=== PATIENT | female | born 1980 | race Caucasian/White ===

== ENCOUNTER 2021-10-24 17:54 | Emergency (ER) | payer MEDICAID, SELFPAY ==
[2021-10-24 18:01] VITALS: BP 110/67; PULSE 95; RESP 16; TEMP 37; O2SAT 95
--- NOTE | 2021-10-24 18:11 | W.ED.GENADLT ---
HPI - General Adult General: Chief complaint: COVID symptoms Stated complaint: abd pain, back pain Time Seen by Provider: 10/24/21 18:10 History of Present Illness: Patient is a 41-year-old female w with no significant past medical history presents to the emergency room for evaluation of diffuse abdominal pain bilateral flank pain, dysuria in the setting of generalized body aches and cough and shortness of breath. Patient tells me that all the symptoms started 2 days ago. Patient reports that has abdominal pain pain has progressed from intermittent colicky pain to constant abdominal pain. Patient reports multiple episodes of vomiting in the last 2 days. Patient denies any diarrhea melena hematochezia. Patient denies any new vaginal discharge or vaginal bleeding. Patient denies any sick contacts around her. Onset:2 days ago Duration:2 days Location:home Severity:moderate Associated symptoms: Reports nausea and vomiting; Deny chest pain, dyspnea, rash or palpitations Review of Systems Const: Denies: fever(s) or chills Eyes: Denies: change in vision ENMT: Denies: mouth pain Card: Denies: chest pain or palpitations Resp: Denies: dyspnea or non-productive cough GI: Reports: abdominal pain, nausea, vomiting and other; Denies: diarrhea : Reports: flank pain (+b/l dysuria) and dysuria Musc: Denies: extremity pain Skin/Breast: Denies: rash or new lesions Neuro: Denies: weakness in extremities Psych: Reports: other (Normal mood) Brandon/Lymph: Denies: easy bruising PFSH ED PFSH: Medical History No pertinent past medical history Denies diabetes, asthma, hypertension, seizures, DVT/PE PCP: Caprice Oviedo Surgical History S/P eye surgery Bilateral surgery for strabismus in 1997 Family History Grandfather Diabetes maternal Hyperlipidemia maternal Mother Hyperlipidemia Hypertension Heart disease Grandmother Hyperlipidemia maternal Heart disease maternal Breast cancer maternal, age at diagnosis unknown Ovarian cancer maternal, age at diagnosis unknown Family/Other Thyroid condition maternal aunt Denies family history of Colon cancer Uterine cancer Stroke Physical Exam Const: COMMON NORMALS: alert HENMT: COMMON NORMALS: atraumatic HEAD & SCALP: atraumatic MOUTH: moist mucous membranes abnormal Eye: COMMON NORMALS: EOMs intact bilaterally and conjunctivae normal CONJUNCTIVA: Yes conjunctivae normal Neck/C-Spine: COMMON NORMALS: full ROM and supple Resp: COMMON NORMALS: normal respiratory effort and clear to auscultation bilaterally AUSCULTATION: clear to auscultation bilaterally Cardio: COMMON NORMALS: regular rate RATE: regular rate GI: COMMON NORMALS: Soft to palpation PALPATION: Yes Soft to palpation OTHER: +Mild diffuse abd TTP. NO guarding rebound, guarding, rigidity. +L CVA tenderness to percussion. Neg Correa/Neg McBurney's point tenderness, no suprabupic tenderness to palpation. +b/l flank tenderness to palpation Extremity: COMMON NORMALS: full ROM Neuro: SENSORIUM/ORIENTATION: Yes alert MOTOR EXAM: No Abnormal motor strength present and Other motor observations present (no focal motor deficits) Psych: COMMON NORMALS: speech normal SPEECH: Yes normal speech MOOD & AFFECT: Yes euthymic mood Course Vital Signs: Vital signs: Vital Signs Temperature 98.6 F 10/24/21 18:01 Pulse Rate 72 10/24/21 21:30 Respiratory Rate 16 10/24/21 18:01 Blood Pressure 99/61 10/24/21 21:30 Pulse Oximetry 97 10/24/21 21:30 Oxygen Delivery Me thod 10/24/21 21:30 [facility] - General Adult Medical Decision Making Patient is a 41-year-old female w with no significant past medical history presents to the emergency room for evaluation of diffuse abdominal pain bilateral flank pain, dysuria in the setting of generalized body aches and cough and shortness of breath x 2 days. On physical exam, patient has mild diffuse abdominal tenderness to palpation with right CVA tenderness to palpation. No guarding or rebound tenderness. Patient exhibit COVID symptoms we will swab for COVID today. Lab work-up showed wbc of 2.8. UA is consistent with possible UTI. 2+ blood in the urine CT did not show any focal intra-abdominal pathology including stones. Patient received GI cocktail reports feeling symptomatically improved. Patient has been able to tolerate p.o. in the emergency room. I will give patient dose of cefdinir for possible UTI versus early pyelonephritis. Patient will call us to follow-up on the COVID result tomorrow. Rx tylenol PRN abd pain, maalox/pepcid PRN dyspepsia, and zofran PRN nausea/vomiting, cefdinir for UTI Disposition: Discharge. Patient counseled regarding diagnostic impression, treatment plan. Patient given ED strict return precautions to return for continuation, worsening, or development of new symptoms. Instructed to f/u w/ PCP regarding symptoms today. Patient verbalized understanding. Lab Data : 10/24/21 19:50 10/24/21 19:50 Radiology Impressions Abdomen/Pelvis CT 10/24/21 18:33 IMPRESSION: Negative for acute abdominopelvic pathology. Laboratory Results WBC 2.8 10^3/uL (4.0-10.0) L 10/24/21 19:50 RBC 4.58 10^6/uL (4.1-5.3) 10/24/21 19:50 Hgb 14.7 g/dL (11.5-15.3) 10/24/21 19:50 Hct 43.4 % (37.0-47.0) 10/24/21 19:50 MCV 94.8 fl (81-99) 10/24/21 19:50 MCH 32.1 pg (28.0-34.0) 10/24/21 19:50 MCHC 33.9 g/dL (30.0-36.0) 10/24/21 19:50 RDW 12.6 % (12.1-15.1) 10/24/21 19:50 Plt Count 120 10^3/cmm (130-400) L 10/24/21 19:50 MPV 11.0 fL (7.4-10.4) H 10/24/21 19:50 Neut % (Auto) 55.0 % 10/24/21 19:50 Lymph % (Auto) 33.5 % 10/24/21 19:50 [place] % (Auto) 10.4 % 10/24/21 19:50 Eos % (Auto) 0.4 % 10/24/21 19:50 Baso % (Auto) 0.7 % 10/24/21 19:50 Neut # (Auto) 1.53 10^3/uL (1.8-7.7) L 10/24/21 19:50 Lymph # (Auto) 0.9 10^3/uL (0.8-4.8) 10/24/21 19:50 [place] # (Auto) 0.3 10^3/uL (0.2-0.9) 10/24/21 19:50 Eos # (Auto) 0.0 10^3/uL (0.0-0.8) 10/24/21 19:50 Baso # (Auto) 0.0 10^3/uL (0.0-0.1) 10/24/21 19:50 Nucleated RBC % (auto) 0 % 10/24/21 19:50 Nucleated RBCs # 0.0 /100WBC 10/24/21 19:50 Sodium 131 mmol/L (136-145) L 10/24/21 19:50 Potassium 4.3 mmol/L (3.5-5.1) 10/24/21 19:50 Chloride 98 mmol/L (98-107) 10/24/21 19:50 Carbon Dioxide 22 mmol/L (22-29) 10/24/21 19:50 Anion Gap 15.3 (5-19) 10/24/21 19:50 BUN 11 mg/dL (6-20) 10/24/21 19:50 Creatinine 0.9 mg/dL (0.5-0.9) 10/24/21 19:50 GFR Calculation 69.3 mL/min (90-130) L 10/24/21 19:50 Glucose 85 mg/dL (65-115) 10/24/21 19:50 Calculated Osmolality 271 mOsm/kg (285-295) L 10/24/21 19:50 Calcium 8.8 mg/dL (8.5-10.5) 10/24/21 19:50 Total Bilirubin 0.2 mg/dL (0.15-1.2) 10/24/21 19:50 AST 21 U/L (0-32) 10/24/21 19:50 ALT 17 U/L (0-33) 10/24/21 19:50 Alkaline Phosphatase 54 U/L (35-105) 10/24/21 19:50 Total Protein 7.3 g/dL (6.6-8.7) 10/24/21 19:50 Albumin 4.1 g/dL (3.5-5.2) 10/24/21 19:50 Globulin 3.2 g/dL (1.3-4.6) 10/24/21 19:50 Lipase 24 U/L (13-60) 10/24/21 19:50 Urine Color Yellow (Yellow) 10/24/21 19:36 Urine Appearance Clear (CLEAR) 10/24/21 19:36 Urine pH 6 (5-7) 10/24/21 19:36 Ur Specific [place] 1.010 (1.005-1.030) 10/24/21 19:36 Urine Protein Neg (Negative) 10/24/21 19:36 Urine Glucose (UA) Norm (Normal) 10/24/21 19:36 Urine Ketones Negative (Negative) 10/24/21 19:36 Urine Blood 2+ (Negative) H 10/24/21 19:36 Urine Nitrate Negative (Negative) 10/24/21 19:36 Urine Bilirubin Neg (Negative) 10/24/21 19:36 Urine Urobilinogen Norm mg/dL (Negative) 10/24/21 19:36 Ur Leukocyte Esterase 1+ (Negative) H 10/24/21 19:36 Urine RBC 5-10 /hpf (0-2) H 10/24/21 19:36 Urine WBC 40-55 /hpf (0-5) H 10/24/21 19:36 Ur Squamous Epith Cells 5-10 /hpf (0-5) H 10/24/21 19:36 Amorphous Sediment Not Reportable 10/24/21 19:36 Urine Bacteria 2+ /hpf (NONE) H 10/24/21 19:36 Imaging Data Other Imaging: Radiologist's impression: [place] [id number] CT Scan Report Signed Patient: Misa De Dios Unit #: [id number] : 1980 Age/Sex: 41 / F ADM Date: 10/24/21 Loc: ER Room/Bed: Attending Dr: Ordering Provider/Ordering MD: Ru Dumont MD Date of Service: 10/24/21 Procedure(s): CT abdomen pelvis w con* [id number] Accession Number(s): [id number] Report Number: [id number] PROCEDURE INFORMATION: Exam: CT Abdomen And Pelvis With Contrast Exam date and time: 10/24/2021 7:00 PM Age: 41 years old Clinical indication: Abdominal pain; Rebound pain; Upper; Additional info: Flank and diffuse abd pain TECHNIQUE: Imaging protocol: Computed tomography of the abdomen and pelvis with contrast. Radiation optimization: All CT scans at this facility use at least one of these dose optimization techniques: automated exposure control; mA and/or kV adjustment per patient size (includes targeted exams where dose is matched to clinical indication); or iterative reconstruction. Contrast material: OMNIPAQUE 350; Contrast volume: 80 ml; Contrast route: INTRAVENOUS (IV);? COMPARISON: No relevant prior studies available. RADIATION DOSE METRICS: Total DLP (mGy-cm): 441.25 FINDINGS: Liver: Normal. No mass. Gallbladder and bile ducts: Normal. No calcified stones. No ductal dilation. Pancreas: Normal. No ductal dilation. Spleen: Normal. No splenomegaly. Adrenal glands: Normal. No mass. Kidneys and ureters: Upper pole cortical atrophy of the right kidney. Multiple nonobstructing right kidney stones. Negative for hydroureteronephrosis. Negative for perinephric inflammation. Stomach and bowel: Unremarkable. No obstruction. No mucosal thickening. Appendix: No evidence of appendicitis. Intraperitoneal space: Unremarkable. No free air. No significant fluid collection. Vasculature: Unremarkable. No abdominal aortic aneurysm. Lymph nodes: Unremarkable. No enlarged lymph nodes. Urinary bladder: Unremarkable as visualized. Reproductive: Unremarkable as visualized. Bones/joints: Unremarkable. No acute fracture. Soft tissues: Unremarkable. CT/CT abdomen pelvis w con* [id number] IMPRESSION: Negative for acute abdominopelvic pathology. ? Dictated By: Ernesto Anderson Signed By: Ernesto Anderson Signed Date/Time: 10/24/211937 DD/ 99 Discharge Plan Discharge Patient Disposition: Home Clinical Impression: Abdominal pain, Body aches, Cough Condition: Stable Prescriptions: New acetaminophen 500 mg tablet 500 mg PO Q6H PRN (Reason: pain) 5 Days Qty: 20 0RF Pepcid 20 mg tablet 20 mg PO BID PRN (Reason: abdominal pain) 10 Days Qty: 20 0RF ondansetron 4 mg tablet,disintegrating 4 mg PO TID PRN (Reason: nausea and vomiting) 4 Days Qty: 12 0RF Maalox Advanced 1,000-60 mg tablet,chewable 1 tab PO TID PRN (Reason: abdominal pain) 7 Days Qty: 21 0RF cefdinir 300 mg capsule 300 mg PO BID 10 Days Qty: 20 0RF No Action ascorbate calcium (vitamin C) 500 mg tablet 500 mg PO DAILY Thomas-Mag 200 mg calcium- 100 mg tablet,chewable PO liquid gold PO levomefolate calcium [L-Methylfolate] 15 mg tablet 15 mg PO DAILY alphalpha PO Discharge Orders: Discharge ED (Routine); Ordered 10/24/21 Ordered By: Ru Dumont Discharge Diet: Advance as tolerated Discharge Activity: Increase activity as tolerated Patient Instructions: Dysuria (ED), Abdominal Pain (ED) Activity Restrictions/Additional Instructions: Please come back if you have any worsening abdominal pain, fever or chills, nausea or vomiting, diarrhea, blood in the stool, inability hold down liquid or solids, or any new concerning complaints. Come back to the emergency room if your symptoms worsen, have any shortness of breath, fever/chills, dehydration, inability tolerate food or drinks, any difficulty breathing, or any new or concerning complaints. Coding Level of Care Code ED Inspector Aide for Chg Fwd Exam Comprehensive
--- NOTE | 2021-10-24 18:33 | CTR_ITS ---
PROCEDURE INFORMATION: Exam: CT Abdomen And Pelvis With Contrast Exam date and time: 10/24/2021 7:00 PM Age: 41 years old Clinical indication: Abdominal pain; Rebound pain; Upper; Additional info: Flank and diffuse abd pain TECHNIQUE: Imaging protocol: Computed tomography of the abdomen and pelvis with contrast. Radiation optimization: All CT scans at this facility use at least one of these dose optimization techniques: automated exposure control; mA and/or kV adjustment per patient size (includes targeted exams where dose is matched to clinical indication); or iterative reconstruction. Contrast material: OMNIPAQUE 350; Contrast volume: 80 ml; Contrast route: INTRAVENOUS (IV); COMPARISON: No relevant prior studies available. RADIATION DOSE METRICS: Total DLP (mGy-cm): 441.25 FINDINGS: Liver: Normal. No mass. Gallbladder and bile ducts: Normal. No calcified stones. No ductal dilation. Pancreas: Normal. No ductal dilation. Spleen: Normal. No splenomegaly. Adrenal glands: Normal. No mass. Kidneys and ureters: Upper pole cortical atrophy of the right kidney. Multiple nonobstructing right kidney stones. Negative for hydroureteronephrosis. Negative for perinephric inflammation. Stomach and bowel: Unremarkable. No obstruction. No mucosal thickening. Appendix: No evidence of appendicitis. Intraperitoneal space: Unremarkable. No free air. No significant fluid collection. Vasculature: Unremarkable. No abdominal aortic aneurysm. Lymph nodes: Unremarkable. No enlarged lymph nodes. Urinary bladder: Unremarkable as visualized. Reproductive: Unremarkable as visualized. Bones/joints: Unremarkable. No acute fracture. Soft tissues: Unremarkable. CT/CT abdomen pelvis w con* [id number] IMPRESSION: Negative for acute abdominopelvic pathology.
[2021-10-24] MEDS: iohexol 350 mg/mL 100 mL Btl IV (19:02)
[2021-10-24] MEDS: acetaminophen 500 mg Tablet 1000 MG PO (19:48)
[2021-10-24] MEDS: sodium chloride 0.9% 1,000 ML 999 ML IV (19:52)
[2021-10-24] MEDS: morphine 4 mg/mL SDV 1 mL 2 MG IVP (19:55)
[2021-10-24 20:00] VITALS: BP 107/70; PULSE 86; O2SAT 96; O2SAT 97
[2021-10-24 20:09] LABS: Basophils % 0.7 %; Eosinophils % 0.4 %; Hematocrit 43.4 % (37.0-47.0); Hemoglobin 14.7 g/dL (11.5-15.3); Lymphocytes # 0.9 10^3/uL (0.8-4.8); Lymphocytes % 33.5 %; Mean Corpuscular HGB Conc 33.9 g/dL (30.0-36.0); Mean Corpuscular Hemoglobin 32.1 pg (28.0-34.0); Mean Corpuscular Volume 94.8 fl (81-99); Monocytes # 0.3 10^3/uL (0.2-0.9); Monocytes % 10.4 %; Neutrophils # 1.53 10^3/uL (1.8-7.7); Nucleated Red Blood Cells % 0 %; Platelet Count 120 10^3/cmm (130-400); Red Blood Count 4.58 10^6/uL (4.1-5.3); Red Cell Distribution Width 12.6 % (12.1-15.1); White Blood Count 2.8 10^3/uL (4.0-10.0)
[2021-10-24 20:27] LABS: Add Urine Microscopic? YES; Bilirubin Urine Neg (Negative); Blood Urine 2+ (Negative); Glucose Urine UA Norm (Normal); Ketones Urine Negative (Negative); Leukocyte Esterase Urine 1+ (Negative); Nitrate Urine Negative (Negative); Protein Urine Neg (Negative); Urine Appearance Clear (CLEAR); Urine Color Yellow (Yellow); Urobilinogen Urine Norm (Negative); pH Urine 6 (5-7)
[2021-10-24 20:29] LABS: Add Urine Culture? Yes; Bacteria Urine 2+ /hpf; WBC Urine 40-55 /hpf (0-5)
[2021-10-24 20:30] VITALS: BP 111/69; PULSE 79; O2SAT 96
[2021-10-24 20:30] LABS: Alanine Aminotransferase 17 U/L (0-33); Albumin Level 4.1 g/dL (3.5-5.2); Alkaline Phosphatase 54 U/L (35-105); Blood Urea Nitrogen 11 mg/dL (6-20); Calcium 8.8 mg/dL (8.5-10.5); Carbon Dioxide 22 mmol/L (22-29); Chloride 98 mmol/L (98-107); Globulin 3.2 g/dL (1.3-4.6); Glomerular Filtration Rate 69.3 mL/min (90-130); Glucose 85 mg/dL (65-115); Lipase 24 U/L (13-60); Osmolality Calculated 271 mOsm/kg (285-295); Sodium 131 mmol/L (136-145); Total Bilirubin 0.2 mg/dL (0.15-1.2); Total Protein 7.3 g/dL (6.6-8.7)
[2021-10-24 20:37] LABS: Anion Gap 15.3 (5-19); Aspartate Amino Transferase 21 U/L (0-32); Potassium 4.3 mmol/L (3.5-5.1)
[2021-10-24 21:00] VITALS: BP 133/65; PULSE 73; O2SAT 96
[2021-10-24] MEDS: lidocaine 2% viscous 15 ML, aluminum-mag hydrox-simethicon 30 ML, sucralfate oral liq 1 GM PO (21:00)
[2021-10-24 21:30] VITALS: BP 99/61; PULSE 72; O2SAT 97
[2021-10-24 22:03] LABS: Adenovirus Not Detected (NOT DETECT); Chlamydia Pneumoniae Not Detected (NOT DETECT); Coronavirus 229E,HKU1,NL63,OC4 Not Detected (NOT DETECT); Human Metapneumovirus Not Detected (NOT DETECT); Human Rhinovirus/Enterovirus Not Detected (NOT DETECT); Influenza A Not Detected (NOT DETECT); Influenza A H1 Not Detected (NOT DETECT); Influenza A H1-2009 Not Detected (NOT DETECT); Influenza A H3 Not Detected (NOT DETECT); Influenza B Not Detected (NOT DETECT); Mycoplasma Pneumoniae Not Detected (NOT DETECT); Parainfluenza Virus Type 1 Not Detected (NOT DETECT); Parainfluenza Virus Type 2 Not Detected (NOT DETECT); Parainfluenza Virus Type 3 Not Detected (NOT DETECT); Parainfluenza Virus Type 4 Not Detected (NOT DETECT); Respiratory Syncytial Virus A Not Detected (NOT DETECT); Respiratory Syncytial Virus B Not Detected (NOT DETECT); SARS-COV-2 Detected (NOT DETECT)
[2021-10-24] MEDS: cefdinir 300 MG CAPSULE PO (22:09)
[2021-10-24 22:35] VITALS: BP 113/72; PULSE 64; RESP 18; O2SAT 97
== END 2021-10-24 22:33 | disposition home or self-care (01) ==
PROVIDERS: Emergency Provider Emergency Medicine
DX: U07.1 COVID-19 (principal)
CPT/HCPCS: 74177; 80053; 81001; 83690; 85025; 87086; 87635; 96361; 96374; 99285; J2270; J7030; Q9967

== ENCOUNTER 2022-01-01 02:09 | Emergency (ER) | payer MEDICAID, SELFPAY ==
[2022-01-01 02:12] VITALS: BP 128/77; PULSE 85; RESP 18; TEMP 36.6; O2SAT 99; BMI 25.0
--- NOTE | 2022-01-01 02:13 | ECG_ITS ---
[facility] Test Date: 2022-01-01 Pat Name: Misa De Dios Department: Room: Gender: Female Quality Review Specialist: : 1980 Requested By: Jorge Luis Amato Order Number: [id number] Trent MD: Lisandra Briscoe M.D. Measurements Intervals [place] Rate: 78 P: 77 TN: 152 QRS: 75 QRSD: 88 T: 62 QT: 379 QTc: 432 Interpretive Statements SINUS RHYTHM No previous ECG available for comparison Electronically Signed On 01-01-2022 8:48:26 SPACE CONTROLLER by Lisandra Briscoe M.D. [id number] f
--- NOTE | 2022-01-01 02:13 | XRR_ITS ---
PROCEDURE INFORMATION: Exam: XR Chest Exam date and time: 01/01/2022 3:17 AM Age: 41 years old Clinical indication: Shortness of breath; Chest pressure; Patient HX: C/O chest pain with SOB; Additional info: Cp TECHNIQUE: Imaging protocol: Radiologic exam of the chest. Views: 1 view. COMPARISON: CT abdomen pelvis w con* [id number] 10/24/2021 7:00 PM FINDINGS: Lungs: Normal lung volumes. No interstitial or airspace opacities. Pleural spaces: No pleural effusion. No pneumothorax. Heart/Mediastinum: Normal heart size. Normal mediastinal contour. Midline trachea. Bones/joints: No acute abnormalities. Bilateral nipple metallic studs are seen. Soft tissues: Multiple external densities are seen overlying the chest, limiting assessment. XR/XR chest 1V portable [id number] IMPRESSION: No chest radiographic evidence of acute cardiopulmonary disease.
--- NOTE | 2022-01-01 02:15 | W.ED.CHESTPA ---
HPI - Chest Pain General: Chief Complaint: Chest Pain Stated Complaint: chest pain, SOB Time Seen by Provider: 01/01/22 02:09 Source: patient and EMS Mode of arrival: EMS Limitations: no limitations History of Present Illness: 41-year-old female states that roughly 2 hours ago she started having a sharp pain in her chest. She states that has been constant and very sharp at its worst was an 8 with some dyspnea states that she called EMS and her pain did improve to a 2 and by time she arrived here was a 0 she did not receive any meds in route states she is currently pain-free she feels at her baseline she has no medical issues does not smoke denies any cough or fever. Associated symptoms: Reports dyspnea; Deny abdominal pain, fever(s), nausea or vomiting Review of Systems Const: Denies: fever(s), chills, body aches or change in appetite Eyes: Denies: blurry vision or eye discomfort ENMT: Denies: throat pain or dental pain Card: Reports: chest pain Resp: Reports: dyspnea GI: Denies: abdominal pain, nausea, vomiting or diarrhea : Denies: dysuria Musc: Denies: neck pain or back pain Skin/Breast: Denies: rash Neuro: Denies: headache(s) Psych: Denies: depression Brandon/Lymph: Denies: easy bruising All/Imm: Denies: urticaria PFSH ED PFSH: Medical History No pertinent past medical history Denies diabetes, asthma, hypertension, seizures, DVT/PE PCP: Caprice Oviedo Surgical History S/P eye surgery Bilateral surgery for strabismus in 1997 Family History Grandfather Diabetes maternal Hyperlipidemia maternal Mother Hyperlipidemia Hypertension Heart disease Grandmother Hyperlipidemia maternal Heart disease maternal Breast cancer maternal, age at diagnosis unknown Ovarian cancer maternal, age at diagnosis unknown Family/Other Thyroid condition maternal aunt Denies family history of Colon cancer Uterine cancer Stroke Physical Exam Const: COMMON NORMALS: no acute distress, patient oriented x3 and healthy appearing HENMT: COMMON NORMALS: normocephalic and atraumatic HEAD & SCALP: normocephalic and atraumatic Eye: COMMON NORMALS: Equal, round and reactive pupils present and EOMs intact bilaterally PUPIL: Yes Equal, round and reactive pupils present Neck/C-Spine: COMMON NORMALS: full ROM and supple Chest: COMMONS NORMALS: normal inspection of the chest and normal palpation of entire chest wall Resp: COMMON NORMALS: normal respiratory effort, No retractions, No use of accessory muscles and clear to auscultation bilaterally AUSCULTATION: clear to auscultation bilaterally Cardio: COMMON NORMALS: regular rate, regular rhythm and No murmurs present (Cardio) RATE: regular rate RHYTHM: regular rhythm GI: COMMON NORMALS: Normal to inspection, nondistended, normoactive bowel sounds present, Soft to palpation, non-tender and no masses PALPATION: Yes Soft to palpation Extremity: COMMON NORMALS: normal to inspection and full ROM Neuro: COMMON NORMALS: patient oriented x3, moves all extremities and no focal motor deficits Psych: COMMON NORMALS: mental status grossly normal, Normal thought process present and cooperative THOUGHT PROCESS: Normal thought process present Skin: COMMON NORMALS: no rashes or lesions noted and no wounds GENERAL SKIN EXAM: no rashes or lesions noted Course Vital Signs: Vital signs: Vital Signs Temperature 97.9 F 01/01/22 02:12 Pulse Rate 58 L 01/01/22 04:00 Respiratory Rate 19 H 01/01/22 04:00 Blood Pressure 97/54 01/01/22 04:00 Pulse Oximetry 96 01/01/22 04:00 Oxygen Delivery Me thod 01/01/22 02:17 MDM - Chest Pain Medical Decision Making Patient presents here with chest pains atypical in nature she has been pain-free here initial repeat troponin are normal EKGs are normal she stable for discharge she is to follow-up with PCP and return if worsening. Lab Data : 01/01/22 02:21 01/01/22 02:21 Radiology Impressions Chest X-Ray 01/01/22 02:13 IMPRESSION: No chest radiographic evidence of acute cardiopulmonary disease. Laboratory Results WBC 7.5 10^3/uL (4.0-10.0) 01/01/22 02:21 RBC 4.15 10^6/uL (4.1-5.3) 01/01/22 02:21 Hgb 13.2 g/dL (11.5-15.3) 01/01/22 02:21 Hct 39.2 % (37.0-47.0) 01/01/22 02:21 MCV 94.5 fl (81-99) 01/01/22 02:21 MCH 31.8 pg (28.0-34.0) 01/01/22 02:21 MCHC 33.7 g/dL (30.0-36.0) 01/01/22 02:21 RDW 12.4 % (12.1-15.1) 01/01/22 02:21 Plt Count 218 10^3/cmm (130-400) 01/01/22 02:21 MPV 10.1 fL (7.4-10.4) 01/01/22 02:21 Neut % (Auto) 53.8 % 01/01/22 02:21 Lymph % (Auto) 33.4 % 01/01/22 02:21 [place] % (Auto) 9.8 % 01/01/22 02:21 Eos % (Auto) 1.6 % 01/01/22 02:21 Baso % (Auto) 1.1 % 01/01/22 02:21 Neut # (Auto) 4.02 10^3/uL (1.8-7.7) 01/01/22 02:21 Lymph # (Auto) 2.5 10^3/uL (0.8-4.8) 01/01/22 02:21 [place] # (Auto) 0.7 10^3/uL (0.2-0.9) 01/01/22 02:21 Eos # (Auto) 0.1 10^3/uL (0.0-0.8) 01/01/22 02:21 Baso # (Auto) 0.1 10^3/uL (0.0-0.1) 01/01/22 02:21 Nucleated RBC % (auto) 0 % 01/01/22 02:21 Nucleated RBCs # 0.0 /100WBC 01/01/22 02:21 Sodium 140 mmol/L (136-145) 01/01/22 02:21 Potassium 3.9 mmol/L (3.5-5.1) 01/01/22 02:21 Chloride 101 mmol/L (98-107) 01/01/22 02:21 Carbon Dioxide 25 mmol/L (22-29) 01/01/22 02:21 Anion Gap 17.9 (5-19) 01/01/22 02:21 BUN 14 mg/dL (6-20) 01/01/22 02:21 Creatinine 0.9 mg/dL (0.5-0.9) 01/01/22 02:21 GFR Calculation 69.3 mL/min (90-130) L 01/01/22 02:21 Glucose 92 mg/dL (65-115) 01/01/22 02:21 Calculated Osmolality 290 mOsm/kg (285-295) 01/01/22 02:21 Calcium 9.9 mg/dL (8.5-10.5) 01/01/22 02:21 Total Bilirubin 0.4 mg/dL (0.15-1.2) 01/01/22 02:21 AST 13 U/L (0-32) 01/01/22 02:21 ALT 10 U/L (0-33) 01/01/22 02:21 Alkaline Phosphatase 55 U/L (35-105) 01/01/22 02:21 Troponin T Baseline 6 ng/L (0-10) 01/01/22 02:21 Troponin T 120 Minute 6.00 ng/L (0-10) 01/01/22 03:50 Total Protein 8.0 g/dL (6.6-8.7) 01/01/22 02:21 Albumin 4.6 g/dL (3.5-5.2) 01/01/22 02:21 Globulin 3.4 g/dL (1.3-4.6) 01/01/22 02:21 EKG Data EKG 1: I personally reviewed and interpreted this EKG as follows: EKG interpretation date: 01/01/22 EKG interpretation time: 02:16 Interpretation: nsr hr [address] or t wave abnormalities qrs 88 qtc 412 Discharge Plan Discharge Patient Disposition: Home Clinical Impression: Chest pain Condition: Stable Prescriptions: No Action No Known Home Medications Discharge Orders: Discharge ED (Routine); Ordered 01/01/22 Ordered By: Jorge Luis Amato Discharge Diet: Advance as tolerated Discharge Activity: Resume usual activity Patient Instructions: Chest Pain (ED) Coding Level of Care Code ED Caseworker Intake for Chg Fwd Exam Comprehensive
[2022-01-01 02:17] VITALS: PULSE 86; RESP 20; O2SAT 99
[2022-01-01] MEDS: aspirin 81 mg Chew Tablet 324 MG PO (02:20)
[2022-01-01 02:34] LABS: Basophils # 0.1 10^3/uL (0.0-0.1); Basophils % 1.1 %; Eosinophils # 0.1 10^3/uL (0.0-0.8); Eosinophils % 1.6 %; Hematocrit 39.2 % (37.0-47.0); Hemoglobin 13.2 g/dL (11.5-15.3); Lymphocytes # 2.5 10^3/uL (0.8-4.8); Lymphocytes % 33.4 %; Mean Corpuscular HGB Conc 33.7 g/dL (30.0-36.0); Mean Corpuscular Hemoglobin 31.8 pg (28.0-34.0); Mean Corpuscular Volume 94.5 fl (81-99); Mean Platelet Volume 10.1 fL (7.4-10.4); Monocytes # 0.7 10^3/uL (0.2-0.9); Monocytes % 9.8 %; Neutrophils # 4.02 10^3/uL (1.8-7.7); Neutrophils % 53.8 %; Nucleated Red Blood Cells % 0 %; Platelet Count 218 10^3/cmm (130-400); Red Blood Count 4.15 10^6/uL (4.1-5.3); Red Cell Distribution Width 12.4 % (12.1-15.1); White Blood Count 7.5 10^3/uL (4.0-10.0)
[2022-01-01 02:51] LABS: Alanine Aminotransferase 10 U/L (0-33); Albumin Level 4.6 g/dL (3.5-5.2); Alkaline Phosphatase 55 U/L (35-105); Anion Gap 17.9 (5-19); Aspartate Amino Transferase 13 U/L (0-32); Blood Urea Nitrogen 14 mg/dL (6-20); Calcium 9.9 mg/dL (8.5-10.5); Carbon Dioxide 25 mmol/L (22-29); Chloride 101 mmol/L (98-107); Globulin 3.4 g/dL (1.3-4.6); Glomerular Filtration Rate 69.3 mL/min (90-130); Glucose 92 mg/dL (65-115); Osmolality Calculated 290 mOsm/kg (285-295); Potassium 3.9 mmol/L (3.5-5.1); Sodium 140 mmol/L (136-145); Total Bilirubin 0.4 mg/dL (0.15-1.2)
[2022-01-01 02:52] LABS: Troponin(5th) Baseline 6 ng/L (0-10)
[2022-01-01 03:00] VITALS: PULSE 66; RESP 17; O2SAT 97
[2022-01-01 04:00] VITALS: BP 97/54; PULSE 58; RESP 19; O2SAT 96
--- NOTE | 2022-01-01 04:13 | ECG_ITS ---
[facility] Test Date: 2022-01-01 Pat Name: Misa De Dios Department: Room: Gender: Female Ediphone Operator: : 1980 Requested By: Jorge Luis Amato Order Number: [id number] Trent MD: Lisandra Briscoe M.D. Measurements Intervals [place] Rate: 70 P: 82 [place]: 185 QRS: 81 QRSD: 67 T: 74 QT: 362 QTc: 392 Interpretive Statements SINUS RHYTHM MODERATE ST DEPRESSION [0.05+ mV ST DEPRESSION] Compared to ECG 01/01/2022 02:16:55 ST (T wave) deviation now present Electronically Signed On 01-01-2022 8:50:10 ALTERNATIVE ENERGY ENGINEER by Lisandra Briscoe M.D. [id number]
[2022-01-01 05:07] LABS: Troponin 5 2HR Delta 0 ABS# (0-10)
== END 2022-01-01 04:29 | disposition home or self-care (01) ==
PROVIDERS: Emergency Provider Emergency Medicine
DX: R07.89 Other chest pain (principal)
CPT/HCPCS: 71045; 80053; 84484; 85025; 93005; 99285

== ENCOUNTER 2022-07-14 09:36 | Outpatient (CLI) | payer MEDICAID, SELFPAY ==
--- NOTE | 2022-07-14 09:49 | US_ITS ---
WS: [id number] ULTRASOUND ABDOMEN CLINICAL INFORMATION: UNSPECIFIED ABDOMINAL PAIN COMPARISON: None. FINDINGS: Liver Size: Normal. Craniocaudal length: 14.4 cm. Echogenicity: Normal. Surface nodularity: None. Mass (size and location): None. Bile ducts Intrahepatic ducts: Normal. Common bile duct diameter: 0.3 cm. Gallbladder Small amount of sludge in the gallbladder neck Gallstones: None. Gallbladder sludge: Present Gallbladder wall thickening: None. Pericholecystic fluid: None. Sonographic Correa sign: Absent. Pancreas Normal as visualized. Spleen Splenomegaly: None. Craniocaudal length: 8.9 cm. Right kidney: Normal. Hydronephrosis: None. Size: 10.3 cm x 3.9 cm x 3.7 cm Left kidney: Normal. Hydronephrosis: None. Size: 10.3 cm x 5.0 cm x 4.2 cm. Abdominal aorta and IVC Visualized portions are normal. Ascites: None. US/US abdomen complete* [id number] IMPRESSION: 1. No gallbladder wall thickening or pericholecystic fluid. 2. Small amount of nonshadowing sludge in the gallbladder neck. No cholelithia sis. 3. Normal common bile duct. 4. No hydronephrosis in either kidney. 5. Normal spleen. 6. Normal liver.
== END 2022-07-14 09:37 | disposition home or self-care (01) ==
LOC: RAD 09:40
PROVIDERS: PCP Nurse Practitioner Family; Visit Provider Nurse Practitioner Family
DX: R10.9 Unspecified abdominal pain (principal); R53.83 Other fatigue; R11.2 Nausea with vomiting, unspecified
CPT/HCPCS: 76700

== ENCOUNTER 2023-12-18 10:45 | Outpatient (CLI) | payer MEDICAID, SELFPAY ==
--- NOTE | 2023-12-18 10:53 | CT_ITS ---
WS: [id number] CT ABDOMEN AND PELVIS NONCONTRAST HISTORY: RIGHT LOWER QUADRANT PAIN TECHNIQUE: Imaging performed through the abdomen and pelvis. Coronal and sagittal reformats are submi tted. All CT scans at [facility] use at least one of these dose optimization techniques: auto mated exposure control; mA and/or kV adjustment per patient size (includes targeted exams where dose is matched to clinical indication); or iterative reconstruction. DLP: 266.49 mGy.cm COMPARISON: 10/24/2021 Lower thorax: Lung bases are hyperinflated. No pneumonia. Normal heart. Liver: Normal size liver. No mass or bile duct dilatation. Gallbladder: Normal gallbladder. No pericholecystic fluid or cholelithiasis. No gallbladder wall thic kening. Pancreas: Poorly visualized pancreas. Breathing motion artifact. Spleen: Normal. Adrenal glands: Normal. No mass. Right kidney: Nonobstructing calcifications. No hydronephrosis. Left kidney: Normal size kidney with no mass or hydronephrosis. Aorta: Normal abdominal aorta, no aneurysm or atherosclerosis. No free fluid, intraperitoneal air or significant lymphadenopathy. GI tract: Normal noncontrast imaging of the stomach, small bowel and colon. No obstruction or wall th ickening. Moderate constipation. No appendicitis. The appendix is visualized and does contain appendi coliths. No inflammation. Abdominal wall: Negative. No hernia. Pelvis: Urinary bladder is markedly distended. Uterus is to the RIGHT of midline. Osseous structures: Bilateral mild sacroiliitis. CT/CT abdomen pelvis wo con [id number] IMPRESSION: 1. No appendicitis. The appendix is identified and normal size and contains ap pendicoliths. 2. Study is limited by motion artifact. Breathing motion artifact on the entir e exam. 3. No renal obstruction. 4. If pain continues consider additional evaluation by CT with IV and oral con trast. 5. Moderate constipation.
== END 2023-12-18 10:52 | disposition home or self-care (01) ==
PROVIDERS: PCP Nurse Practitioner Family; Visit Provider Nurse Practitioner Family
DX: N20.0 Calculus of kidney (principal); K38.1 Appendicular concretions; K59.00 Constipation, unspecified; R10.31 Right lower quadrant pain; R63.4 Abnormal weight loss; R19.7 Diarrhea, unspecified; R14.0 Abdominal distension (gaseous); R10.9 Unspecified abdominal pain
CPT/HCPCS: 74176

== ENCOUNTER 2024-03-04 23:17 | Emergency (ER) | payer MEDICAID, SELFPAY ==
[2024-03-04 23:25] VITALS: BP 127/87; PULSE 85; RESP 20; TEMP 36.5; O2SAT 99; BMI 22.2
[2024-03-04 23:28] VITALS: PULSE 76; O2SAT 100
--- NOTE | 2024-03-04 23:32 | ED_ITS ---
Documented by User: MELINDA Sales 03/05/24 00:45 HPI - Syncope 2 General: Chief Complaint: Syncope Stated Complaint: syncope Time Seen by Provider: 03/04/24 23:19 History of Present Illness: 44-year-old female comes in today with c omplaints of onset of nausea and vomiting tonight. Patient reports symptoms started immediately after supper. Patient has had several episodes of emesis and was unable to hold anything down. Patient became suddenly very lightheaded. Patient denies any alcohol or drug use. Patient denies any chronic medical problems. Patient has been given 4 mg of Zofran, 12-1/2 mg of Phenergan and route by EMS. Patient is also been given 1 L of IV fluids. Patient reports improvement of symptoms with medications and fluids. MD complaint: felt faint and other (n/v) Onset (ago): hour(s) Related Data Previous Rx's Medication Instructions Recorded promethazine 12.5 mg tablet 12.5 mg PO Q6H PRN nausea and 03/05/24 vomiting #10 tabs Allergies Allergy/AdvReac Type Severity Reaction Status Date / Time No Known Allergies Allergy Unverified 01/01/22 02:16 Review of Systems 2 General: Reports: 10 or more systems reviewed and unremarkable except in HPI and below PFSH ED 2 PFSH: Medical History No pertinent past medical history Denies diabetes, asthma, hypertension, seizures, DVT/PE PCP: Caprice Oviedo Surgical History S/P eye surgery Bilateral surgery for strabismus in 1997 Family History Grandfather Diabetes maternal Hyperlipidemia maternal Mother Hyperlipidemia Hypertension Heart disease Grandmother Hyperlipidemia maternal Heart disease maternal Breast cancer maternal, age at diagnosis unknown Ovarian cancer maternal, age at diagnosis unknown Family/Other Thyroid condition maternal aunt Denies family history of Colon cancer Uterine cancer Stroke Physical Exam 2 Const: COMMON NORMALS: alert HENMT: COMMON NORMALS: normocephalic HEAD & SCALP: normocephalic Neck/C-Spine: COMMON NORMALS: full ROM Resp: COMMON NORMALS: normal respiratory effort and clear to auscultation bilaterally AUSCULTATION: clear to auscultation bilaterally Cardio: COMMON NORMALS: regular rate and regular rhythm RATE: regular rate RHYTHM: regular rhythm GI: COMMON NORMALS: Soft to palpation and non-tender PALPATION: Yes Soft to palpation : COMMON NORMALS: Yes no CVA tenderness BLADDER/KIDNEY EXAM: Yes no CVA tenderness Back/Pelvis: COMMON NORMALS: no CVA tenderness Extremity: COMMON NORMALS: full ROM Neuro: SENSORIUM/ORIENTATION: Yes alert Skin: COMMON NORMALS: turgor normal GENERAL SKIN EXAM: turgor normal Course 2 Vital Signs: Vital signs: Vital Signs Temperature 97.7 F 03/04/24: Pulse Rate 85 03/04/24: Respiratory Rate 20 H 03/04/24: Blood Pressure 127/87 03/04/24: Pulse Oximetry 99 03/04/24: MDM - Syncope Medical Decision Making 44-year-old female comes in today for complaints of nausea and vomiting starting after supper tonight. Patient has multiple episodes of emesis. Patient felt lightheaded and faint. EMS was called and noted patient was mildly hypotensive at 90/60 and was actively vomiting. No chronic medical problems were reported. Patient was given Zofran and promethazine and route. Patient's improvement of nausea and vomiting and symptoms after medication and 1 L of IV saline. Differential diagnosis includes gastroenteritis, reflux, cyclic vomiting syndrome, gallbladder disease. 0045, CBC noted some mild anemia, CMP was unremarkable except for some mild elevation in anion gap. Patient will be given another litr IV fluids just due to complaints of nausea and lightheaded. Dr. Urena will continue care of patient at the end of my shift. We are awaiting urinalysis to rule out urinary tract infection. Suspect patient probably has gastroenteritis and can be discharged home with Phenergan tablets after completion of IV fluids. Lab Data 03/04/24 23:30 03/04/24 23: Laboratory Results WBC 8.88 10^3/uL (3.29-11.43) 03/04/24 23: RBC 3.31 10^6/uL (3.85-5.65) L 03/04/24 23: Hgb 10.60 g/dL (11.27-16.99) L 03/04/24: Hct 31.8 % (36-47) L 03/04/24: MCV 96.1 fl (85-98) 03/04/24: MCH 32.0 pg (27-33) 03/04/24: MCHC 33.3 g/dL (30-55) 03/04/24: RDW 12.5 % (12.1-15.1) 03/04/24: Plt Count 193 10^3/cmm (157-399) 03/04/24: MPV 9.9 fL (7.4-10.4) 03/04/24: Neut % (Auto) 72.0 % 03/04/24: Lymph % (Auto) 19.9 % 03/04/24: [place] % (Auto) 7.1 % 03/04/24 Eos % (Auto) 0.3 % 03/04/24 Baso % (Auto) 0.5 % 03/04/24 Neut # (Auto) 6.39 10^3/uL (1.8-7.7) 03/04/24: Lymph # (Auto) 1.8 10^3/uL (0.8-4.8) 03/04/24: [place] # (Auto) 0.6 10^3/uL (0.2-0.9) 03/04/24: Eos # (Auto) 0.0 10^3/uL (0.0-0.8) 03/04/24: Baso # (Auto) 0.0 10^3/uL (0.0-0.1) 03/04/24: Nucleated RBC % (auto) 0 % 03/04/24 Nucleated RBCs # 0.0 /100WBC 03/04/24: Sodium 138 mmol/L (136-145) 03/04/24: Potassium 4.0 mmol/L (3.5-5.1) 03/04/24: Chloride 102 mmol/L (98-107) 03/04/24: Carbon Dioxide 19 mmol/L (22-29) L 03/04/24: Anion Gap 21.0 (5-19) H 03/04/24 23:30 BUN 14 mg/dL (6-20) 03/04/24 23:30 Creatinine 0.9 mg/dL (0.5-0.9) 03/04/24 23:30 GFR Calculation 68.3 mL/min (90-130) L 03/04/24 23:30 Glucose 105 mg/dL (65-115) 03/04/24 23:30 Calculated Osmolality 287 mOsm/kg (285-295) 03/04/24 23:30 Calcium 8.8 mg/dL (8.5-10.5) 03/04/24 23:30 Total Bilirubin 0.3 mg/dL (0.15-1.2) 03/04/24 23:30 AST 14 U/L (0-32) 03/04/24 23:30 ALT 10 U/L (0-33) 03/04/24 23:30 Alkaline Phosphatase 44 U/L (35-105) 03/04/24 23:30 Total Protein 5.8 g/dL (6.6-8.7) L 03/04/24 23:30 Albumin 3.5 g/dL (3.5-5.2) 03/04/24 23:30 Globulin 2.3 g/dL (1.3-4.6) 03/04/24 23:30 Lipase 25 U/L (13-60) 03/04/24 23:30 Urine Color Yellow (Yellow) 03/05/24 01:14 Urine Appearance Turbid (CLEAR) A 03/05/24 01:14 Urine pH 7.5 (5-7) 03/05/24 01:14 Ur Specific [place] 1.018 (1.005-1.030) 03/05/24 01:14 Urine Protein Negative (Negative) 03/05/24 01:14 Urine Glucose (UA) Negative (Normal) 03/05/24 01:14 Urine Ketones 1+ (Negative) H 03/05/24 01:14 Urine Blood Negative (Negative) 03/05/24 01:14 Urine Nitrate Negative (Negative) 03/05/24 01:14 Urine Bilirubin Negative (Negative) 03/05/24 01:14 Urine Urobilinogen 0.2 mg/dL (Negative) 03/05/24 01:14 Ur Leukocyte Esterase Trace (Negative) A 03/05/24 01:14 Urine RBC 0-2 /hpf (0-2) 03/05/24 01:14 Urine WBC 11-20 /hpf (0-5) H 03/05/24 01:14 Ur Squamous Epith Cells 6-10 /hpf (0-5) 03/05/24 01:14 Amorphous Sediment Not Reportable 03/05/24 01:14 Urine Bacteria 1+ /hpf (NONE) H 03/05/24 01:14 Hyaline Casts 0.40 /lpf 03/05/24 01:14 Discharge Plan Discharge Patient Disposition: Home Clinical Impression: Gastroenteritis Condition: Stable Prescriptions: New promethazine 12.5 mg tablet 12.5 mg PO Q6H PRN (Reason: nausea and vomiting) Qty: 10 0RF Discharge Orders: Discharge ED (Routine); Ordered 03/05/24 Ordered By: Fausto Urena Referrals: Tasia Ortiz, SOCIAL MEDIA ANALYST [Primary Care Provider] - Discharge Diet: Advance as tolerated Discharge Activity: Increase activity as tolerated Patient Instructions: Gastroenteritis (ED) Activity Restrictions/Additional Instructions: Home and rest. Drink plenty of water and fluids. Stay well-hydrated. Use promethazine as needed for nausea and vomiting. Most often this is a illness that causes nausea and vomiting for about 12 hours and diarrhea may persist up for 2 to 3 days. It is important to stay well-hydrated. You need to use electrolyte solutions like Pedialyte or possible clear Gatorade solutions in order to maintain electrolytes and fluid. Return to ER for signs of blood in the vomit or stool. Follow-up with primary care as needed. Coding Level of Care Code ED Certified Medicine Aide for Chg Fwd Documented by User: Fausto Urena MD 03/05/24 01:33 HPI - Syncope 2 General: Chief Complaint: Syncope Stated Complaint: syncope Time Seen by Provider: 03/04/24 23:19 Related Data Previous Rx's Medication Instructions Recorded promethazine 12.5 mg tablet 12.5 mg PO Q6H PRN nausea and 03/05/24 vomiting #10 tabs Allergies Allergy/AdvReac Type Severity Reaction Status Date / Time No Known Allergies Allergy Unverified 01/01/22 02:16 PFSH ED 2 PFSH: Medical History No pertinent past medical history Denies diabetes, asthma, hypertension, seizures, DVT/PE PCP: Caprice Oviedo Surgical History S/P eye surgery Bilateral surgery for strabismus in 1997 Family History Grandfather Diabetes maternal Hyperlipidemia maternal Mother Hyperlipidemia Hypertension Heart disease Grandmother Hyperlipidemia maternal Heart disease maternal Breast cancer maternal, age at diagnosis unknown Ovarian cancer maternal, age at diagnosis unknown Family/Other Thyroid condition maternal aunt Denies family history of Colon cancer Uterine cancer Stroke Course 2 Vital Signs: Vital signs: Vital Signs Temperature 97.7 F 03/04/24 23:25 Pulse Rate 85 03/04/24 23:25 Respiratory Rate 20 H 03/04/24 23:25 Blood Pressure 127/87 03/04/24 23: Pulse Oximetry 99 03/04/24 23:25 MDM - Syncope Medical Decision Making 44-year-old female comes in today for complaints of nausea and vomiting starting after supper tonight. Patient has multiple episodes of emesis. Patient felt lightheaded and faint. EMS was called and noted patient was mildly hypotensive at 90/60 and was actively vomiting. No chronic medical problems were reported. Patient was given Zofran and promethazine and route. Patient's improvement of nausea and vomiting and symptoms after medication and 1 L of IV saline. Differential diagnosis includes gastroenteritis, reflux, cyclic vomiting syndrome, gallbladder disease. 0045, CBC noted some mild anemia, CMP was unremarkable except for some mild elevation in anion gap. Patient will be given another litr IV fluids just due to complaints of nausea and lightheaded. Dr. Urena will continue care of patient at the end of my shift. We are awaiting urinalysis to rule out urinary tract infection. Suspect patient probably has gastroenteritis and can be discharged home with Phenergan tablets after completion of IV fluids. I did review the labs. CBC, CMP and lipase are normal. Urine analysis was contaminated. Patient is not having any urinary symptoms. She is feeling better after fluids and antiemetics. She was discharged in stable condition instructed to push clear liquids only until symptoms subside. Follow-up with primary care physician in 2 or 3 days if no improvement. Lab Data 03/04/24 23:30 03/04/24: Laboratory Results WBC 8.88 10^3/uL (3.29-11.43) 03/04/24: RBC 3.31 10^6/uL (3.85-5.65) L 03/04/24: Hgb 10.60 g/dL (11.27-16.99) L 03/04/24: Hct 31.8 % (36-47) L 03/04/24: MCV 96.1 fl (85-98) 03/04/24 MCH 32.0 pg (27-33) 03/04/24: MCHC 33.3 g/dL (30-55) 03/04/24: RDW 12.5 % (12.1-15.1) 03/04/24: Plt Count 193 10^3/cmm (157-399) 03/04/24: MPV 9.9 fL (7.4-10.4) 03/04/24: Neut % (Auto) 72.0 % 03/04/24: Lymph % (Auto) 19.9 % 03/04/24: [place] % (Auto) 7.1 % 03/04/24: Eos % (Auto) 0.3 % 03/04/24: Baso % (Auto) 0.5 % 03/04/24: Neut # (Auto) 6.39 10^3/uL (1.8-7.7) 03/04/24: Lymph # (Auto) 1.8 10^3/uL (0.8-4.8) 03/04/24 [place] # (Auto) 0.6 10^3/uL (0.2-0.9) 03/04/24: Eos # (Auto) 0.0 10^3/uL (0.0-0.8) 03/04/24 23:30 Baso # (Auto) 0.0 10^3/uL (0.0-0.1) 03/04/24 23:30 Nucleated RBC % (auto) 0 % 03/04/24 23: Nucleated RBCs # 0.0 /100WBC 03/04/24 23:30 Sodium 138 mmol/L (136-145) 03/04/24 23:30 Potassium 4.0 mmol/L (3.5-5.1) 03/04/24 23: Chloride 102 mmol/L (98-107) 03/04/24 23: Carbon Dioxide 19 mmol/L (22-29) L 03/04/24 23: Anion Gap 21.0 (5-19) H 03/04/24 23:30 BUN 14 mg/dL (6-20) 03/04/24 23:30 Creatinine 0.9 mg/dL (0.5-0.9) 03/04/24 23:30 GFR Calculation 68.3 mL/min (90-130) L 03/04/24 23:30 Glucose 105 mg/dL (65-115) 03/04/24 23:30 Calculated Osmolality 287 mOsm/kg (285-295) 03/04/24 23:30 Calcium 8.8 mg/dL (8.5-10.5) 03/04/24 23: Total Bilirubin 0.3 mg/dL (0.15-1.2) 03/04/24 23:30 AST 14 U/L (0-32) 03/04/24 23: ALT 10 U/L (0-33) 03/04/24 23: Alkaline Phosphatase 44 U/L (35-105) 03/04/24 23:30 Total Protein 5.8 g/dL (6.6-8.7) L 03/04/24 23: Albumin 3.5 g/dL (3.5-5.2) 03/04/24 23: Globulin 2.3 g/dL (1.3-4.6) 03/04/24 23:30 Lipase 25 U/L (13-60) 03/04/24 23:30 Urine Color Yellow (Yellow) 03/05/24 01:14 Urine Appearance Turbid (CLEAR) A 03/05/24 01:14 Urine pH 7.5 (5-7) 03/05/24 01:14 Ur Specific [place] 1.018 (1.005-1.030) 03/05/24 01:14 Urine Protein Negative (Negative) 03/05/24 01:14 Urine Glucose (UA) Negative (Normal) 03/05/24 01:14 Urine Ketones 1+ (Negative) H 03/05/24 01:14 Urine Blood Negative (Negative) 03/05/24 01:14 Urine Nitrate Negative (Negative) 03/05/24 01:14 Urine Bilirubin Negative (Negative) 03/05/24 01:14 Urine Urobilinogen 0.2 mg/dL (Negative) 03/05/24 01:14 Ur Leukocyte Esterase Trace (Negative) A 03/05/24 01:14 Urine RBC 0-2 /hpf (0-2) 03/05/24 01:14 Urine WBC 11-20 /hpf (0-5) H 03/05/24 01:14 Ur Squamous Epith Cells 6-10 /hpf (0-5) 03/05/24 01:14 Amorphous Sediment Not Reportable 03/05/24 01:14 Urine Bacteria 1+ /hpf (NONE) H 03/05/24 01:14 Hyaline Casts 0.40 /lpf 03/05/24 01:14 No radiology studies performed this visit Discharge Plan Discharge Patient Disposition: Home Clinical Impression: Gastroenteritis Condition: Stable Prescriptions: New promethazine 12.5 mg tablet 12.5 mg PO Q6H PRN (Reason: nausea and vomiting) Qty: 10 0RF Discharge Orders: Discharge ED (Routine); Ordered 03/05/24 Ordered By: Fausto Urena Referrals: Tasia Ortiz NP [Primary Care Provider] - Discharge Diet: Advance as tolerated Discharge Activity: Increase activity as tolerated Patient Instructions: Gastroenteritis (ED) Activity Restrictions/Additional Instructions: Home and rest. Drink plenty of water and fluids. Stay well-hydrated. Use promethazine as needed for nausea and vomiting. Most often this is a illness that causes nausea and vomiting for about 12 hours and diarrhea may persist up for 2 to 3 days. It is important to stay well-hydrated. You need to use electrolyte solutions like Pedialyte or possible clear Gatorade solutions in order to maintain electrolytes and fluid. Return to ER for signs of blood in the vomit or stool. Follow-up with primary care as needed. Coding Level of Care Code ED Certified Medicine Aide for Dennis Gamez
[2024-03-04 23:40] LABS: Basophils % 0.5 %; Eosinophils % 0.3 %; Hematocrit 31.8 % (36-47); Lymphocytes # 1.8 10^3/uL (0.8-4.8); Lymphocytes % 19.9 %; Mean Corpuscular HGB Conc 33.3 g/dL (30-55); Mean Corpuscular Volume 96.1 fl (85-98); Mean Platelet Volume 9.9 fL (7.4-10.4); Monocytes # 0.6 10^3/uL (0.2-0.9); Monocytes % 7.1 %; Neutrophils # 6.39 10^3/uL (1.8-7.7); Nucleated Red Blood Cells % 0 %; Platelet Count 193 10^3/cmm (157-399); Red Blood Count 3.31 10^6/uL (3.85-5.65); Red Cell Distribution Width 12.5 % (12.1-15.1); White Blood Count 8.88 10^3/uL (3.29-11.43)
[2024-03-04 23:56] LABS: Alanine Aminotransferase 10 U/L (0-33); Albumin Level 3.5 g/dL (3.5-5.2); Alkaline Phosphatase 44 U/L (35-105); Aspartate Amino Transferase 14 U/L (0-32); Blood Urea Nitrogen 14 mg/dL (6-20); Calcium 8.8 mg/dL (8.5-10.5); Carbon Dioxide 19 mmol/L (22-29); Chloride 102 mmol/L (98-107); Creatinine Clr Calc Pharmacy 77.1294; Globulin 2.3 g/dL (1.3-4.6); Glomerular Filtration Rate 68.3 mL/min (90-130); Glucose 105 mg/dL (65-115); Lipase 25 U/L (13-60); Osmolality Calculated 287 mOsm/kg (285-295); Sodium 138 mmol/L (136-145); Total Bilirubin 0.3 mg/dL (0.15-1.2); Total Protein 5.8 g/dL (6.6-8.7)
[2024-03-05 00:28] VITALS: PULSE 77; O2SAT 99
[2024-03-05] MEDS: ondansetron 2 mg/ML SDV 2 mL 4 MG IVP (00:29)
[2024-03-05] MEDS: lactated ringers 1,000 ML 999 ML IV (00:29)
[2024-03-05 01:21] LABS: Bilirubin Urine Negative (Negative); Blood Urine Negative (Negative); Glucose Urine UA Negative (Normal); Ketones Urine 1+ (Negative); Leukocyte Esterase Urine Trace (Negative); Nitrate Urine Negative (Negative); Protein Urine Negative (Negative); Specific Gravity, Urine 1.018 (1.005-1.030); Urine Appearance Turbid (CLEAR); Urine Color Yellow (Yellow); Urobilinogen Urine 0.2 mg/dL (Negative); pH Urine 7.5 (5-7)
[2024-03-05 01:24] LABS: Add Urine Microscopic? YES; Bacteria Urine 1+ /hpf; RBC Urine 0-2 /hpf (0-2)
[2024-03-05 01:28] VITALS: BP 121/47; PULSE 52; O2SAT 98
[2024-03-05 01:51] VITALS: BP 121/47; PULSE 52; O2SAT 100
== END 2024-03-05 01:52 | disposition home or self-care (01) ==
PROVIDERS: Nurse Practitioner Family; Emergency Provider Emergency Medicine; PCP Nurse Practitioner Family
DX: K52.9 Noninfective gastroenteritis and colitis, unspecified (principal)
CPT/HCPCS: 36415; 80053; 81001; 83690; 85025; 96374; 99284; J2405; J7120

== ENCOUNTER 2024-04-21 08:01 | Outpatient (CLI) | payer MEDICAID, SELFPAY ==
--- NOTE | 2024-04-21 08:07 | CT_ITS ---
WS: [id number] CT HEAD TECHNIQUE: Noncontrast CT of the head obtained from the skullbase to the vertex. CLINICAL INFORMATION: DIZZINESS/VERTIGO/GIDDINESS COMPARISON: None. DLP: 977.[address] scans at [facility] use at least one of these dose optimization techniques: automated exposure control; mA and/or kV adjustment per patient size (includes targeted exams where dose is matched to clinical indication); or iterative reconstruction. FINDINGS: No evidence of intracranial hemorrhage or mass effect. Ventricular system and basal cisterns are patent. No extra-axial fluid collections. No evidence of mass or mass effect. Normal rose-white differentiation. Paranasal sinuses and mastoid air cells are well aerated. .Normal visualized soft tissues. CT/CT head wo con* [id number] IMPRESSION: 1. No evidence of intracranial hemorrhage or mass effect. 2. No acute intracranial findings.
== END 2024-04-21 08:02 | disposition home or self-care (01) ==
PROVIDERS: PCP Nurse Practitioner Family; Visit Provider Nurse Practitioner Family
DX: R42 Dizziness and giddiness (principal)
CPT/HCPCS: 70450

== ENCOUNTER 2024-08-15 11:21 | Emergency (ER) | payer MEDICAID, SELFPAY ==
[2024-08-15 11:24] VITALS: BP 128/77; PULSE 62; RESP 18; TEMP 36.7; O2SAT 100; BMI 22.2
[2024-08-15 11:32] VITALS: BP 132/76; PULSE 61; RESP 18
--- NOTE | 2024-08-15 11:55 | XRR_ITS ---
PROCEDURE INFORMATION: Exam: XR Chest Exam date and time: 08/15/2024 12:05 PM Age: 44 years old Clinical indication: Dyspnea; Additional info: Dyspnea/cough TECHNIQUE: Imaging protocol: Radiologic exam of the chest. Views: 1 view. COMPARISON: CR XR chest 1V portable [id number] 01/01/2022 3:17 AM FINDINGS: Lungs: See Soft tissues finding. Pleural spaces: Minimal blunting of the right costophrenic sulcus. Heart/Mediastinum: Unremarkable. No cardiomegaly. Bones/joints: Unremarkable. Soft tissues: 1.4 cm nodular opacity projects over the right lung base laterally, which could represent a pulmonary lesion versus nipple shadow. Similar opacity at the left base. XR/XR chest 1V portable [id number] IMPRESSION: Pulmonary nodules versus nipple shadows. Recommend chest radiograph with nipple markers.
--- NOTE | 2024-08-15 11:55 | CT_ITS ---
WS: [id number] CT ABDOMEN AND PELVIS WITH CONTRAST HISTORY: abd pain TECHNIQUE: Imaging performed of the abdomen and pelvis with IV contrast. Single phase imaging of the abdomen. Coronal and sagittal reformats are submitted. All CT scans at [facility] use at least one of these dose optimization techniques: automated exposure control; mA and/or kV adjustment per patient size (includes targeted exams where dose is matched to clinical indication); or iterative reconstruction. IV CONTRAST: Omnipaque 350; 100 mL IV. Oral contrast: No DLP: 372.53 mGy.cm COMPARISON: 12/18/2023 Lower thorax: Lung bases are clear. Heart is normal size. No hiatal hernia. Liver/biliary system: Normal size with no intrahepatic dilatation. Normal common bile duct of 5.1 mm. Gallbladder: Normal. No gallstones or wall thickening. No pericholecystic fluid. Pancreas: Normal size pancreas and pancreatic duct. No adjacent inflammation. Spleen: Normal size spleen. No mass or infarct. Adrenal glands: Normal. Right kidney: Stable cortical scar measuring 7 mm with cystic changes and calcification. No renal obstruction. Left kidney: Normal. Aorta: Normal. Lymphadenopathy: None. Free fluid: None. GI tract: No GI tract obstruction. Normal appendix. No diverticulitis. Abdominal wall: Fat containing umbilical hernia. Pelvis: Uterus is normally positioned. There is some increased fluid within the endometrial canal which may be related to menses. Small ovarian follicles. Bones: Unremarkable. CT/CT abdomen pelvis w con* [id number] IMPRESSION: 1. No acute abdominal or pelvic abnormalities identified. 2. Normal appendix. 3. Negative gallbladder. 4. Normal common bile duct size. 5. No renal obstruction.
[2024-08-15 12:26] VITALS: PULSE 56; O2SAT 99
[2024-08-15 12:47] VITALS: O2SAT 96
[2024-08-15 12:50] LABS: Basophils # 0.1 10^3/uL (0.0-0.1); Basophils % 0.9 %; Bilirubin Urine Negative (Negative); Blood Urine Negative (Negative); Eosinophils # 0.1 10^3/uL (0.0-0.8); Eosinophils % 1.3 %; Glucose Urine UA Negative (Normal); Hematocrit 36.7 % (36-47); Ketones Urine Negative (Negative); Leukocyte Esterase Urine Negative (Negative); Lymphocytes # 2.5 10^3/uL (0.8-4.8); Lymphocytes % 32.9 %; Mean Corpuscular HGB Conc 33.2 g/dL (30-55); Mean Corpuscular Hemoglobin 32.1 pg (27-33); Mean Corpuscular Volume 96.6 fl (85-98); Mean Platelet Volume 10.3 fL (7.4-10.4); Monocytes # 0.5 10^3/uL (0.2-0.9); Neutrophils # 4.42 10^3/uL (1.8-7.7); Neutrophils % 57.3 %; Nitrate Urine Negative (Negative); Nucleated Red Blood Cells % 0 %; Platelet Count 215 10^3/cmm (157-399); Protein Urine Negative (Negative); Red Cell Distribution Width 12.7 % (12.1-15.1); Specific Gravity, Urine 1.005 (1.005-1.030); Urine Appearance Clear (CLEAR); Urine Color Yellow (Yellow); Urobilinogen Urine 0.2 mg/dL (Negative); White Blood Count 7.71 10^3/uL (3.29-11.43)
[2024-08-15 12:55] LABS: Add Urine Microscopic? YES; Bacteria Urine None Seen /hpf; Hyaline Casts Urine 0-4 /lpf; RBC Urine 0-2 /hpf (0-2); Squamous Epithelial Cell Urine 0-5 /hpf (0-5); WBC Urine 0-5 /hpf (0-5)
--- NOTE | 2024-08-15 12:55 | W.ED.ABDPA2 ---
HPI - Abdominal Pain General: Chief Complaint: Abdominal Pain Stated Complaint: ABD Pain Time Seen by Provider: 08/15/24 11:24 History of Present Illness: 44-year-old female who presents to the emergency room with a complaint of abdominal pain rating into her shoulder. She states it is better when she burps. Worse after she eats she has not noticed anything in particular that worsens her symptoms. She has not had any fever sweats chills no similar episodes previously. Associated Symptoms: Denies chills, dysuria and fever(s) Related Data Home Medications ?Medication ?Instructions ?Recorded ?Confirmed alprazolam 0.5 mg tablet See Rx Instructions .Route 08/15/24 08/15/24 .COMPLEX PRN Anxiety cetirizine 10 mg tablet 10 mg PO DAILY 08/15/24 08/15/24 fluoxetine 20 mg tablet 20 mg PO DAILY 08/15/24 08/15/24 fluoxetine 20 mg tablet 20 mg PO QAM 08/15/24 08/15/24 Previous Rx's ?Medication ?Instructions ?Recorded pantoprazole 40 mg tablet,delayed 40 mg PO BID #40 tabs 08/15/24 release (Protonix) Allergies Allergy/AdvReac Type Severity Reaction Status Date / Time No Known Allergies Allergy Unverified 01/01/22 02:16 Review of Systems Const: Denies: fever(s) or chills Card: Denies: chest pain Resp: Denies: dyspnea GI: Denies: abdominal pain : Denies: dysuria, urinary frequency or urinary urgency Musc: Denies: neck pain or back pain Skin/Breast: Denies: rash PFSH ED PFSH: Medical History No pertinent past medical history Denies diabetes, asthma, hypertension, seizures, DVT/PE PCP: Caprice [place] Surgical History S/P eye surgery Bilateral surgery for strabismus in 1997 Family History Grandfather Diabetes maternal Hyperlipidemia maternal Mother Hyperlipidemia Hypertension Heart disease Grandmother Hyperlipidemia maternal Heart disease maternal Breast cancer maternal, age at diagnosis unknown Ovarian cancer maternal, age at diagnosis unknown Family/Other Thyroid disease maternal aunt Denies family history of Colon cancer Uterine cancer Stroke Physical Exam Const: GENERAL APPEARANCE: cooperative ORIENTATION/CONSCIOUSNESS: Yes awake, Yes oriented to person, Yes oriented to place and Yes oriented to time HENMT: COMMON NORMALS: normocephalic, atraumatic and hearing grossly normal bilaterally HEAD & SCALP: normocephalic and atraumatic Resp: COMMON NORMALS: normal respiratory effort, No retractions, No use of accessory muscles and clear to auscultation bilaterally AUSCULTATION: clear to auscultation bilaterally Cardio: COMMON NORMALS: regular rate, regular rhythm and No murmurs present (Cardio) RATE: regular rate RHYTHM: regular rhythm GI: COMMON NORMALS: Soft to palpation and No hepatosplenomegaly present AUSCULTATION: Yes normoactive bowel sounds PALPATION: Yes Soft to palpation, No Tenderness to palpation present (GI), No Guarding due to palpation present (GI) and Yes No hepatosplenomegaly present Extremity: COMMON NORMALS: normal to inspection, capillary refill normal, no clubbing, cyanosis or edema, no calf tenderness and no pedal edema Neuro: SENSORIUM/ORIENTATION: Yes oriented to person, Yes oriented to place and Yes oriented to time Skin: COMMON NORMALS: no rashes or lesions noted GENERAL SKIN EXAM: no rashes or lesions noted Course Vital Signs: Vital signs: Vital Signs Temperature 98.1 F 08/15/24 11:24 Pulse Rate 68 08/15/24 15:53 Respiratory Rate 18 08/15/24 11:32 Blood Pressure 110/71 08/15/24 15:53 Pulse Oximetry 98 08/15/24 15:53 Oxygen Delivery Me thod Room Air 08/15/24 14:48 MDM - Abdominal Pain Medical Decision Making Labs and imaging reviewed. Liver functions normal T. bili normal. Lipase normal. Suspect a lot of this is reflux. Suspect the the symptoms she is getting are esophageal spasm and reflux. Troponins are negative. This may also be biliary dyskinesia however symptoms more suggestive of reflux. Will start on pantoprazole and recommended that the patient follow-up with primary care if not improving may need to get a HIDA scan or EGD. Medical Records I reviewed the patient's medical records. Lab Data I reviewed the patient's lab results. 08/15/24 12:20 08/15/24 12:20 Labs/Radiology: Radiology Impressions Abdomen/Pelvis CT 08/15/24 11:55 IMPRESSION: 1. No acute abdominal or pelvic abnormalities identified. 2. Normal appendix. 3. Negative gallbladder. 4. Normal common bile duct size. 5. No renal obstruction. Chest X-Ray 08/15/24 11:55 IMPRESSION: Pulmonary nodules versus nipple shadows. Recommend chest radiograph with nipple markers. Laboratory Results WBC 7.71 10^3/uL (3.29-11.43) 08/15/24 12:20 RBC 3.80 10^6/uL (3.85-5.65) L 08/15/24 12:20 Hgb 12.20 g/dL (11.27-16.99) 08/15/24 12:20 Hct 36.7 % (36-47) 08/15/24 12:20 MCV 96.6 fl (85-98) 08/15/24 12:20 MCH 32.1 pg (27-33) 08/15/24 12:20 MCHC 33.2 g/dL (30-55) 08/15/24 12:20 RDW 12.7 % (12.1-15.1) 08/15/24 12:20 Plt Count 215 10^3/cmm (157-399) 08/15/24 12:20 MPV 10.3 fL (7.4-10.4) 08/15/24 12:20 Neut % (Auto) 57.3 % 08/15/24 12:20 Lymph % (Auto) 32.9 % 08/15/24 12:20 [place] % (Auto) 6.0 % 08/15/24 12:20 Eos % (Auto) 1.3 % 08/15/24 12:20 Baso % (Auto) 0.9 % 08/15/24 12:20 Neut # (Auto) 4.42 10^3/uL (1.8-7.7) 08/15/24 12:20 Lymph # (Auto) 2.5 10^3/uL (0.8-4.8) 08/15/24 12:20 [place] # (Auto) 0.5 10^3/uL (0.2-0.9) 08/15/24 12:20 Eos # (Auto) 0.1 10^3/uL (0.0-0.8) 08/15/24 12:20 Baso # (Auto) 0.1 10^3/uL (0.0-0.1) 08/15/24 12:20 Nucleated RBC % (auto) 0 % 08/15/24 12:20 Nucleated RBCs # 0.0 /100WBC 08/15/24 12:20 Sodium 140 mmol/L (136-145) 08/15/24 12:20 Potassium 4.1 mmol/L (3.5-5.1) 08/15/24 12:20 Chloride 102 mmol/L (98-107) 08/15/24 12:20 Carbon Dioxide 24 mmol/L (22-29) 08/15/24 12:20 Anion Gap 18.1 (5-19) 08/15/24 12:20 BUN 14 mg/dL (6-20) 08/15/24 12:20 Creatinine 0.9 mg/dL (0.5-0.9) 08/15/24 12:20 GFR Calculation 68.3 mL/min (90-130) L 08/15/24 12:20 Glucose 81 mg/dL (65-115) 08/15/24 12:20 Calculated Osmolality 290 mOsm/kg (285-295) 08/15/24 12:20 Calcium 9.2 mg/dL (8.5-10.5) 08/15/24 12:20 Magnesium 2.1 mg/dL (1.7-2.3) 08/15/24 12:20 Total Bilirubin 0.2 mg/dL (0.15-1.2) 08/15/24 12:20 AST 18 U/L (0-32) 08/15/24 12:20 ALT 13 U/L (0-33) 08/15/24 12:20 Alkaline Phosphatase 56 U/L (35-105) 08/15/24 12:20 Troponin T Baseline < 6 ng/L (0-10) 08/15/24 12:20 Troponin T 120 Minute < 6.0 ng/L (0-10) 08/15/24 14:20 Delta Troponin T 0 ABS# (0-10) 08/15/24 14:20 Total Protein 7.7 g/dL (6.6-8.7) 08/15/24 12:20 Albumin 4.4 g/dL (3.5-5.2) 08/15/24 12:20 Globulin 3.3 g/dL (1.3-4.6) 08/15/24 12:20 Lipase 26 U/L (13-60) 08/15/24 12:20 HCG, Qual Negative (Negative) 08/15/24 12:20 Urine Color Yellow (Yellow) 08/15/24 12:20 Urine Appearance Clear (CLEAR) 08/15/24 12:20 Urine pH 6.0 (5-7) 08/15/24 12:20 Ur Specific [place] 1.005 (1.005-1.030) 08/15/24 12:20 Urine Protein Negative (Negative) 08/15/24 12:20 Urine Glucose (UA) Negative (Normal) 08/15/24 12:20 Urine Ketones Negative (Negative) 08/15/24 12:20 Urine Blood Negative (Negative) 08/15/24 12:20 Urine Nitrate Negative (Negative) 08/15/24 12:20 Urine Bilirubin Negative (Negative) 08/15/24 12:20 Urine Urobilinogen 0.2 mg/dL (Negative) 08/15/24 12:20 Ur Leukocyte Esterase Negative (Negative) 08/15/24 12:20 Urine RBC 0-2 /hpf (0-2) 08/15/24 12:20 Urine WBC 0-5 /hpf (0-5) 08/15/24 12:20 Ur Squamous Epith Cells 0-5 /hpf (0-5) 08/15/24 12:20 Amorphous Sediment Not Reportable 08/15/24 12:20 Urine Bacteria None seen /hpf (NONE) 08/15/24 12:20 Hyaline Casts 0-4 /lpf H 08/15/24 12:20 All radiology interpretation(s) finalized by discharge Discharge Plan Discharge Patient Disposition: Home Clinical Impression: Atypical chest pain, Esophageal spasm, Chest pain due to GERD Condition: Stable Prescriptions: New pantoprazole [Protonix] 40 mg tablet,delayed release (DR/EC) 40 mg PO BID Qty: 40 0RF Rx Instructions: 1 p.o. twice daily x 10 days then 1 p.o. daily No Action cetirizine 10 mg tablet 10 mg PO DAILY alprazolam 0.5 mg tablet See Rx Instructions .ROUTE .COMPLEX PRN (Reason: Anxiety) Rx Instructions: Take half to one tablet daily as needed for severe anxiety . fluoxetine 20 mg Tablet 20 mg PO DAILY fluoxetine 20 mg tablet 20 mg PO QAM Discharge Orders: Discharge ED (Routine); Ordered 08/15/24 Ordered By: Wilfredo Velez Referrals: Tasia Ortiz NP [Primary Care Provider, Unknown] Discharge Diet: As Directed Patient Instructions: Diet for Stomach Ulcers and Gastritis (ED), GERD (Gastroesophageal Reflux Disease) (ED), Esophageal Spasm (ED), Opioid Safety, Pain Management Activity Restrictions/Additional Instructions: Thank you for choosing [facility] for your healthcare needs today. It is very important that you follow up as instructed or that you return to the Emergency Department should you have concerns or if your condition changes or worsens in any way. You were seen in the emergency room complaints of chest discomfort your heart enzymes and EKG were normal there is no sign of an active upper GI bleed. Recommend that you start pantoprazole 1 tablet twice a day for 10 days and 1 p.o. daily. Follow-up with your primary care doctor we also gave dietary recommendations at the time of discharge. Print Language: Dutch Coding Level of Care Code ED Circular Shear Operator for Dennis Gamez
[2024-08-15 13:06] LABS: Add Urine Culture? No
[2024-08-15 13:07] LABS: HCG, Serum Qual Negative (Negative)
[2024-08-15 13:19] LABS: Alanine Aminotransferase 13 U/L (0-33); Albumin Level 4.4 g/dL (3.5-5.2); Alkaline Phosphatase 56 U/L (35-105); Anion Gap 18.1 (5-19); Aspartate Amino Transferase 18 U/L (0-32); Blood Urea Nitrogen 14 mg/dL (6-20); Calcium 9.2 mg/dL (8.5-10.5); Carbon Dioxide 24 mmol/L (22-29); Chloride 102 mmol/L (98-107); Creatinine Clr Calc Pharmacy 77.1294; Globulin 3.3 g/dL (1.3-4.6); Glomerular Filtration Rate 68.3 mL/min (90-130); Glucose 81 mg/dL (65-115); Lipase 26 U/L (13-60); Magnesium 2.1 mg/dL (1.7-2.3); Osmolality Calculated 290 mOsm/kg (285-295); Potassium 4.1 mmol/L (3.5-5.1); Sodium 140 mmol/L (136-145); Total Bilirubin 0.2 mg/dL (0.15-1.2); Total Protein 7.7 g/dL (6.6-8.7)
--- NOTE | 2024-08-15 13:32 | ECG_ITS ---
[facility] Test Date: 2024-08-15 Pat Name: Misa De Dios Department: Room: Gender: Female Residential Solar Consultant: : 1980 Requested By: Wilfredo Naqvi Order Number: [id number] Trent MD: Cyril Barger M.D. Measurements Intervals [place] Rate: 54 P: 22 [place]: 143 QRS: 73 QRSD: 82 T: 55 QT: 435 QTc: 415 Interpretive Statements SINUS BRADYCARDIA Compared to ECG 01/01/2022 03:57:50 Sinus rhythm no longer present ST (T wave) deviation no longer present Electronically Signed On 08-16-2024 17:21:56 CDT by Cyril Barger M.D. [email or web address]
[2024-08-15 14:01] LABS: Troponin(5th) Baseline < 6 ng/L (0-10)
[2024-08-15 14:44] LABS: Troponin 5 2HR < 6.0 ng/L (0-10); Troponin 5 2HR Delta 0 ABS# (0-10)
[2024-08-15 14:48] VITALS: O2SAT 100
[2024-08-15 15:53] VITALS: BP 110/71; PULSE 68; O2SAT 98
== END 2024-08-15 15:53 | disposition home or self-care (01) ==
PROVIDERS: Emergency Provider Family Medicine; PCP Nurse Practitioner Family
DX: R07.89 Other chest pain (principal); K22.4 Dyskinesia of esophagus; K21.9 Gastro-esophageal reflux disease without esophagitis
CPT/HCPCS: 36415; 71045; 74177; 80053; 81001; 83690; 83735; 84484; 84703; 85025; 93005; 99285

== ENCOUNTER 2024-12-03 20:29 | Emergency (ER) | payer MEDICAID, SELFPAY ==
[2024-12-03 20:34] VITALS: BP 100/67; PULSE 82; RESP 18; TEMP 36.7; O2SAT 97; BMI 21.3
--- OUTSIDE RECORDS SUMMARY | 2024-12-03 20:35 | XMS_ITS | Clinical Summary ---
Author Organization [facility] Address [address] Attn: Epic Prelude ADT NYDIA PANG [id number] Care Team Providers Care Cutter V Groove Name Role Phone Unavailable Primary Care Provider Unavailabl e Allergies No known active allergies Family History Medical History Relation Name Comments Alcohol abuse Father Diabetes Father Hypertension Father Breast Cancer Maternal Grandmother Blood Disorder Mother Diabetes Mother Healthy Son 1 Relation Name Status Comments Father Alive Maternal Grandmother Alive Mother Alive Son 1 Son 2 Alive Social History Tobacco Use Types Packs/Day Years Used Date Smoking Tobacco: Never Smokeless Tobacco: Never Alcohol Use Standard Drinks/Week Comments Yes 0 (1 standard drink = 0.6 oz pur e alcohol) Comments Unknown Sex and Gender Information Value Date Recorded Sex Assigned at Not on file 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
--- OUTSIDE RECORDS SUMMARY | 2024-12-03 20:35 | XMS_ITS | Encounter Summary ---
Author Organization [facility] Address 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
--- OUTSIDE RECORDS SUMMARY | 2024-12-03 20:35 | XMS_ITS | Encounter Summary ---
Author Organization [facility] Address [address] [place] [address] Care Team Providers Care Solderer Assembly Repair Name Role Phone Unavailable Primary Care Provider Unavailabl e Encounter Details Date Type Department Care Team (Late st Contact Info) Description 08/03/[address] 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
--- OUTSIDE RECORDS SUMMARY | 2024-12-03 20:35 | XMS_ITS | Encounter Summary ---
Author Organization [facility] Address 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
--- OUTSIDE RECORDS SUMMARY | 2024-12-03 20:35 | XMS_ITS | Encounter Summary ---
Author Organization [facility] Address 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
--- OUTSIDE RECORDS SUMMARY | 2024-12-03 20:35 | XMS_ITS | Encounter Summary ---
Author Organization [facility] Address 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
--- OUTSIDE RECORDS SUMMARY | 2024-12-03 20:35 | XMS_ITS | Encounter Summary ---
Author Organization [facility] Address 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
--- OUTSIDE RECORDS SUMMARY | 2024-12-03 20:35 | XMS_ITS | Encounter Summary ---
Author Organization [facility] Address 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
--- NOTE | 2024-12-03 21:06 | XRR_ITS ---
PROCEDURE INFORMATION: Exam: XR Right Ribs Exam date and time: 12/03/2024 9:23 PM Age: 44 years old Clinical indication: Injury or trauma; Fall; Rib area; Blunt trauma (contusions or hematomas); Injury date: 11/27/2024; Additional info: Pain S/P fall TECHNIQUE: Imaging protocol: Radiologic exam of the right ribs. Views: 2 views. COMPARISON: CR XR chest 1V portable [id number] 08/15/2024 12:05 PM FINDINGS: Bones/joints: Normal. Lungs: Probable hyperinflation, questionable emphysema. Soft tissues: Normal. XR/XR ribs RT 2V* [id number] IMPRESSION: No acute findings.
[2024-12-03] MEDS: HYDROcodone-acetaminophen 7.5-325 mg Tablet 1 TAB PO ×2 (22:20→23:29)
--- NOTE | 2024-12-03 22:21 | W.ED.BACK ---
Documented by User: LOGAN Ramsey 12/03/24 23:21 HPI - Back Pain/Injury General: Chief Complaint: Back Pain/Injury Stated Complaint: R side painfull SOB Time Seen by Provider: 12/03/24 20:42 Source: patient Mode of arrival: ambulatory Limitations: no limitations History of Present Illness: Patient is a 44-year-old female who presents the emergency department complaining of right rib and back pain for the past week. States that she fell and she hit her left side, but this is the only explanation for why she is having pain on the right. No other direct trauma is noted. No history of similar pain. Notes that pain is worse with deep breaths and coughing. She is tearful and anxious at this time, has only been taking Tylenol with no relief. Vital stable. No radiation of the pain. No spinous process tenderness reported. No neck pain. No chest pain. MD elicited complaint: back pain and other (Right lateral rib pain) Pertinent past history: recent trauma (Recent fall) Onset (ago): week(s) Timing: constant Severity: severe Location: right upper back (Right lateral ribs) Associated symptoms: Deny abdominal pain, difficulty walking, fecal incontinence, fever(s) or syncope Related Data Home Medications ?Medication ?Instructions ?Recorded ?Confirmed alprazolam 0.5 mg tablet See Rx Instructions .Route 08/15/24 08/15/24 .COMPLEX PRN Anxiety cetirizine 10 mg tablet 10 mg PO DAILY 08/15/24 08/15/24 fluoxetine 20 mg tablet 20 mg PO DAILY 08/15/24 08/15/24 fluoxetine 20 mg tablet 20 mg PO QAM 08/15/24 08/15/24 Previous Rx's ?Medication ?Instructions ?Recorded pantoprazole 40 mg tablet,delayed 40 mg PO BID #40 tabs 08/15/24 release (Protonix) hydrocodone 5 mg-acetaminophen 325 1 tab PO Q8H PRN pain #12 tabs 12/03/24 mg tablet Allergies Allergy/AdvReac Type Severity Reaction Status Date / Time No Known Allergies Allergy Unverified 01/01/22 02:16 Review of Systems General: Reports: 10 or more systems reviewed and unremarkable except in HPI and below Const: Reports: other (denies trauma); Denies: fever(s), change in weight or night sweats Card: Denies: chest pain, lightheadedness or syncope Resp: Denies: dyspnea GI: Denies: abdominal pain or fecal incontinence : Denies: urinary incontinence Musc: Reports: back pain and other (Right lateral rib pain); Denies: neck pain or extremity pain Skin/Breast: Denies: rash or skin pain Neuro: Denies: headache(s), numbness in extremities, weakness in extremities, sensory changes, lack of coordination, difficulty walking, frequent falls or involuntary movements PFSH ED PFSH: Medical History No pertinent past medical history Denies diabetes, asthma, hypertension, seizures, DVT/PE PCP: Caprice [facility] Surgical History S/P eye surgery Bilateral surgery for strabismus in 1997 Family History Grandfather Diabetes maternal Hyperlipidemia maternal Mother Hyperlipidemia Hypertension Heart disease Grandmother Hyperlipidemia maternal Heart disease maternal Breast cancer maternal, age at diagnosis unknown Ovarian cancer maternal, age at diagnosis unknown Family/Other Thyroid disease maternal aunt Denies family history of Colon cancer Uterine cancer Stroke Physical Exam Const: COMMON NORMALS: patient oriented x3, no limitations, healthy appearing and alert OTHER: Tearful Neck/C-Spine: COMMON NORMALS: full ROM OTHER: No C-spine tenderness Chest: OTHER: Easy reproducible tenderness palpation of right lateral chest wall with no appreciable step-off deformity Resp: COMMON NORMALS: normal respiratory effort, No retractions, No use of accessory muscles and clear to auscultation bilaterally AUSCULTATION: clear to auscultation bilaterally Cardio: COMMON NORMALS: regular rate, regular rhythm, S1 normal heart sound present and S2 normal heart sound present RATE: regular rate RHYTHM: regular rhythm HEART SOUNDS: S1 normal heart sound present and S2 normal heart sound present Back/Pelvis: OTHER: Normal visual examination. No spinous process tenderness or paracervical, parathoracic, or paralumbar tenderness to palpation. Full active range of motion. Extremity: COMMON NORMALS: normal to inspection and full ROM Neuro: COMMON NORMALS: patient oriented x3, moves all extremities, no focal motor deficits, no sensory deficits noted, deep tendon reflexes 2+ bilaterally and gait normal SENSORIUM/ORIENTATION: Yes alert Skin: COMMON NORMALS: no rashes or lesions noted GENERAL SKIN EXAM: no rashes or lesions noted Course Vital Signs: Vital signs: Vital Signs Temperature 98.1 F 12/03/24 20:34 Pulse Rate 82 12/03/24 20:34 Respiratory Rate 18 12/03/24 20:34 Blood Pressure 100/67 12/03/24 20:34 Pulse Oximetry 97 12/03/24 20:34 Oxygen Delivery Me thod Room Air 12/03/24 20:34 MDM - Back Pain/Injury Medical Decision Making Patient presented in severe pain secondary to right rib pain and right upper back pain, states that this been going on for a week but worsening after a fall. Stated she wanted to make sure she had no fracture of the ribs, on exam was tearful and standing over the bed in pain. Easily reproducible tenderness palpation over the right lateral chest wall with no step-off deformity noted, no underlying cardiopulmonary auscultation abnormalities, overall vitals have been stable. Has not been taking Tylenol for pain. Note significant relief of pain here after Tobyhanna and Toradol. X-ray does not show any acute fracture or other abnormalities. Due to her shallow breathing that she had been noted, so as to avoid exacerbation of pain. She needs adequate analgesia so we will send Tobyhanna for a couple of days and have her alternate this with NSAIDs. Other measures such as deep breathing and regular coughing, pillow to support the chest, and retain activity are also encouraged and she is given general return precautions. She agrees to this plan at this time. Labs Radiology Impressions Ribs X-Ray 12/03/24 21:06 IMPRESSION: No acute findings. All radiology interpretation(s) finalized by discharge Discharge Plan Discharge Patient Disposition: Home Clinical Impression: Contusion of rib on right side Qualifiers: Encounter type: initial encounter Qualified Code(s): S29.8XXA - Other specified injuries of thorax, initial encounter Condition: Stable Prescriptions: New hydrocodone-acetaminophen 5-325 mg tablet 1 tab PO Q8H PRN (Reason: pain) Qty: 12 0RF No Action cetirizine 10 mg tablet 10 mg PO DAILY alprazolam 0.5 mg tablet See Rx Instructions .ROUTE .COMPLEX PRN (Reason: Anxiety) Rx Instructions: Take half to one tablet daily as needed for severe anxiety . fluoxetine 20 mg Tablet 20 mg PO DAILY fluoxetine 20 mg tablet 20 mg PO QAM pantoprazole [Protonix] 40 mg tablet,delayed release (DR/EC) 40 mg PO BID Qty: 40 0RF Rx Instructions: 1 p.o. twice daily x 10 days then 1 p.o. daily Discharge Orders: Discharge ED (Routine); Ordered 12/03/24 Ordered By: Johs Vásquez Referrals: Tasia Ortiz NP [Primary Care Provider, Unknown] Patient Instructions: Opioid Safety, Pain Management, Patient Portal & [facility] Instructions Activity Restrictions/Additional Instructions: Rib Contusion Discharge Instructions You have been diagnosed with a right rib contusion. This injury can cause significant pain, which may make it hard to take deep breaths. Good pain control is important to help you breathe normally and lower your risk of lung problems. Medications: - Tobyhanna 5 mg/325 mg (hydrocodone/acetaminophen): Take 1 tablet every 4 to 6 hours as needed for pain. Do not take more than 8 tablets in 24 hours. Use the lowest dose that controls your pain and only for as long as needed. - Other pain options: Scheduled acetaminophen and NSAIDs (like ibuprofen) are recommended to help control pain and reduce the need for opioids, unless you have a reason not to take them (such as stomach, kidney, or liver problems). Ask your doctor if these are safe for you. - Avoid alcohol and other sedatives while taking Tobyhanna, as these can increase the risk of serious side effects. Breathing and Activity: - Take deep breaths and cough regularly. This helps keep your lungs clear and lowers your risk of pneumonia. - Use a pillow to support your chest when coughing or moving, if it helps with pain. - Stay active as tolerated, but avoid activities that worsen your pain. Side Effects and Safety: - Tobyhanna may cause drowsiness, constipation, nausea, or dizziness. Do not drive or operate machinery while taking this medication. - Tobyhanna can be habit-forming. Take it only as prescribed and stop as soon as you can manage pain with other medications. - If you have trouble breathing, severe pain, fever, or cough with colored mucus, seek medical attention right away. Follow-Up: - Schedule a follow-up appointment as directed. - If pain is not controlled or you have trouble breathing, contact your healthcare provider. Important Reminders: - Do not take more medication than prescribed. - Store Tobyhanna safely and out of reach of children. - Dispose of unused medication according to pharmacy instructions. These instructions are based on current guidelines for rib injury pain management, which recommend using multiple types of pain relief and limiting opioid use to the shortest duration necessary. 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[employer] Documented by User: Ari Montano, 12/04/24 01:21 HPI - Back Pain/Injury General: Chief Complaint: Back Pain/Injury Stated Complaint: R side painfull SOB Time Seen by Provider: 12/03/24 20:42 Related Data Home Medications ?Medication ?Instructions ?Recorded ?Confirmed alprazolam 0.5 mg tablet See Rx Instructions .Route 08/15/24 08/15/24 .COMPLEX PRN Anxiety cetirizine 10 mg tablet 10 mg PO DAILY 08/15/24 08/15/24 fluoxetine 20 mg tablet 20 mg PO DAILY 08/15/24 08/15/24 fluoxetine 20 mg tablet 20 mg PO QAM 08/15/24 08/15/24 Previous Rx's ?Medication ?Instructions ?Recorded pantoprazole 40 mg tablet,delayed 40 mg PO BID #40 tabs 08/15/24 release (Protonix) hydrocodone 5 mg-acetaminophen 325 1 tab PO Q8H PRN pain #12 tabs 12/03/24 mg tablet Allergies Allergy/AdvReac Type Severity Reaction Status Date / Time No Known Allergies Allergy Unverified 01/01/22 02:16 PFSH ED PFSH: Medical History No pertinent past medical history Denies diabetes, asthma, hypertension, seizures, DVT/PE PCP: Caprice [facility] Surgical History S/P eye surgery Bilateral surgery for strabismus in 1997 Family History Grandfather Diabetes maternal Hyperlipidemia maternal Mother Hyperlipidemia Hypertension Heart disease Grandmother Hyperlipidemia maternal Heart disease maternal Breast cancer maternal, age at diagnosis unknown Ovarian cancer maternal, age at diagnosis unknown Family/Other Thyroid disease maternal aunt Denies family history of Colon cancer Uterine cancer Stroke Course Vital Signs: Vital signs: Vital Signs Temperature 98.1 F 12/03/24 20:34 Pulse Rate 82 12/03/24 20:34 Respiratory Rate 18 12/03/24 20:34 Blood Pressure 100/67 12/03/24 20:34 Pulse Oximetry 97 12/03/24 20:34 Oxygen Delivery Me thod Room Air 12/03/24 20:34 MDM - Back Pain/Injury Medical Decision Making Patient presented in severe pain secondary to right rib pain and right upper back pain, states that this been going on for a week but worsening after a fall. Stated she wanted to make sure she had no fracture of the ribs, on exam was tearful and standing over the bed in pain. Easily reproducible tenderness palpation over the right lateral chest wall with no step-off deformity noted, no underlying cardiopulmonary auscultation abnormalities, overall vitals have been stable. Has not been taking Tylenol for pain. Note significant relief of pain here after Tobyhanna and Toradol. X-ray does not show any acute fracture or other abnormalities. Due to her shallow breathing that she had been noted, so as to avoid exacerbation of pain. She needs adequate analgesia so we will send Tobyhanna for a couple of days and have her alternate this with NSAIDs. Other measures such as deep breathing and regular coughing, pillow to support the chest, and retain activity are also encouraged and she is given general return precautions. She agrees to this plan at this time. This patient was originally seen by Mr. Fahad PA-C. I agree with his history, evaluation, and management. Labs Radiology Impressions Ribs X-Ray 12/03/24 21:06 IMPRESSION: No acute findings. Discharge Plan Discharge Patient Disposition: Home Clinical Impression: Contusion of rib on right side Qualifiers: Encounter type: initial encounter Qualified Code(s): S29.8XXA - Other specified injuries of thorax, initial encounter Condition: Stable Prescriptions: New hydrocodone-acetaminophen 5-325 mg tablet 1 tab PO Q8H PRN (Reason: pain) Qty: 12 0RF No Action cetirizine 10 mg tablet 10 mg PO DAILY alprazolam 0.5 mg tablet See Rx Instructions .ROUTE .COMPLEX PRN (Reason: Anxiety) Rx Instructions: Take half to one tablet daily as needed for severe anxiety . fluoxetine 20 mg Tablet 20 mg PO DAILY fluoxetine 20 mg tablet 20 mg PO QAM pantoprazole [Protonix] 40 mg tablet,delayed release (DR/EC) 40 mg PO BID Qty: 40 0RF Rx Instructions: 1 p.o. twice daily x 10 days then 1 p.o. daily Discharge Orders: Discharge ED (Routine); Ordered 12/03/24 Ordered By: Josh Vásquez Referrals: Tasia Ortiz NP [Primary Care Provider, Unknown] Patient Instructions: Opioid Safety, Pain Management, Patient Portal & [place] Instructions Activity Restrictions/Additional Instructions: Rib Contusion Discharge Instructions You have been diagnosed with a right rib contusion. This injury can cause significant pain, which may make it hard to take deep breaths. Good pain control is important to help you breathe normally and lower your risk of lung problems. Medications: - Tobyhanna 5 mg/325 mg (hydrocodone/acetaminophen): Take 1 tablet every 4 to 6 hours as needed for pain. Do not take more than 8 tablets in 24 hours. Use the lowest dose that controls your pain and only for as long as needed. - Other pain options: Scheduled acetaminophen and NSAIDs (like ibuprofen) are recommended to help control pain and reduce the need for opioids, unless you have a reason not to take them (such as stomach, kidney, or liver problems). Ask your doctor if these are safe for you. - Avoid alcohol and other sedatives while taking Tobyhanna, as these can increase the risk of serious side effects. Breathing and Activity: - Take deep breaths and cough regularly. This helps keep your lungs clear and lowers your risk of pneumonia. - Use a pillow to support your chest when coughing or moving, if it helps with pain. - Stay active as tolerated, but avoid activities that worsen your pain. Side Effects and Safety: - Tobyhanna may cause drowsiness, constipation, nausea, or dizziness. Do not drive or operate machinery while taking this medication. - Tobyhanna can be habit-forming. Take it only as prescribed and stop as soon as you can manage pain with other medications. - If you have trouble breathing, severe pain, fever, or cough with colored mucus, seek medical attention right away. Follow-Up: - Schedule a follow-up appointment as directed. - If pain is not controlled or you have trouble breathing, contact your healthcare provider. Important Reminders: - Do not take more medication than prescribed. - Store Tobyhanna safely and out of reach of children. - Dispose of unused medication according to pharmacy instructions. These instructions are based on current guidelines for rib injury pain management, which recommend using multiple types of pain relief and limiting opioid use to the shortest duration necessary. 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
== END 2024-12-03 23:30 | disposition home or self-care (01) ==
PROVIDERS: Emergency Provider Physician Assistant; PCP Nurse Practitioner Family
DX: S29.8XXA Other specified injuries of thorax, initial encounter (principal); W19.XXXA Unspecified fall, initial encounter
CPT/HCPCS: 71100; 96372; 99284; J1885; J9999